=== PATIENT | female | born 1985 | race American Indian/Alaskan Native ===

== ENCOUNTER 2017-08-23 16:27 | Outpatient (CLI) | payer OTHER ==
[2017-08-23] MEDS ORDERED: LACTATED RINGERS 500 ML IV ONE (17:00)
[2017-08-23 19:07] VITALS: BP 88/53
[2017-08-23 19:12] LABS: Bilirubin,Urine NEG (Negative); Blood,Urine NEG (Negative); Color,Urine Straw (Yellow); Protein,Urine <15 mg/dL mg/dL (Negative); Urobilinogen,Urine < 2.0 mg/dL (<2.0); WBC,Urine < 1.0 /HPF (0.0-6.0)
[2017-08-23] MEDS ORDERED: TYLENOL PO ONE (19:23)
== END 2017-08-23 19:38 | disposition home or self-care (01) ==
LOC: TRG 16:27
PROVIDERS: ATTEND Obstetrics & Gynecology
DX: O47.03 False labor before 37 completed weeks of gestation, third trimester (principal); Z3A.35 35 weeks gestation of pregnancy
CPT/HCPCS: 59025; 81001; 96360; J7120

== ENCOUNTER 2017-09-14 05:21 | Inpatient (IN) | payer OTHER ==
[2017-09-14] MEDS ORDERED: ALUM-MAG HYDROX-SIMETH 200-200-20MG/5ML PO ONE (07:31)
[2017-09-14] MEDS ORDERED: MINERAL OIL PO PRN (10:56)
[2017-09-14] MEDS ORDERED: STADOL IV PRN (10:56)
[2017-09-14] MEDS ORDERED: ePHEDrine SULFATE IV PRN (10:56)
[2017-09-14] MEDS ORDERED: BRETHINE SUB-Q PRN (10:56)
[2017-09-14] MEDS ORDERED: BRETHINE IVP PRN (10:56)
[2017-09-14] MEDS ORDERED: PITOCin/NS 30 UNIT/500ML 30 UNITS/500 ML BAG IV SCH ×2 (11:00)
[2017-09-14] MEDS ORDERED: LACTATED RINGERS 1,000 ML IV SCH (11:00)
[2017-09-14] MEDS ORDERED: PITOCin/NS 20 UNIT/1000ML DRIP 20 UNITS/1,000 ML BAG IV SCH (11:00)
[2017-09-14] MEDS ORDERED: NARCAN 2 MG/2 ML ONE (11:04)
--- NOTE | 2017-09-14 11:04 | History and Physical Report ---
History of Present Illness Date of examination: 09/14/17 Date of admission: 09/14/17 05:22 Chief complaint: Contractions History of present illness: 31 y/o , now 38.4 days presents to labor and delivery in active labor. care at [facility] since 32 weeks. [facility] at 20 [facility]. Hx of +UDS for THC. GBS positive. Past History Past Medical History: no pertinent history Past Surgical History: cholecystectomy Family/Genetic History: none Social history: no significant social history - Obstetrical History Expected Date of Delivery: 09/24/17 Actual Gestation: 38 Week(s) 4 Day(s) : 6 Para: 5 Hx # Term Pregnancies: 5 Number of Living Children: 5 Medications and Allergies Allergies Allergy/AdvReac Type Severity Reaction Status Date / Time shellfish derived Allergy Hives Verified 02/13/14 19:26 Home Medications Medication Instructions Recorded Confirmed Last Taken Type Vits96/Iron Fum/Folic 1 tab PO QDAY 10/11/14 10/29/14 10/29/14 09:00 History [ Tablet] 1 tab Sertraline HCl 20 mg PO Q3D 10/11/14 10/29/14 09/27/14 10:00 History Acetaminophen/Codeine [Tylenol #3] 1 tab PO Q4HR PRN #30 tablet 10/31/14 Unknown Rx Ferrous Sulfate [Feosol 325 MG tab] 325 mg PO QDAY #60 tablet 10/31/14 Unknown Rx Ibuprofen [Motrin 600 MG tab] 600 mg PO Q6H PRN #30 tablet 10/31/14 Unknown Rx Sertraline [Zoloft] 100 mg PO QDAY #30 tablet 10/31/14 Unknown Rx Review of Systems All systems: negative - Vital Signs Vital signs: Vital Signs Temp 98.2 F 09/14/17 06:43 Temp Pulse Resp BP Pulse Ox 98.2 F 09/14/17 06:43 - Physical Exam Breasts: Positive: deferred, mass Lungs: Positive: Clear to auscultation Abdomen: Positive: soft Genitourinary (Female): Positive: normal external genitalia Vulva: both: normal Vagina: Positive: normal moisture Uterus: Positive: enlarged Anus/Rectum: Positive: normal perianal skin Extremities: Positive: normal Deep Tendon Reflex Grade: Normal +2 - Obstetrical FHR: category 1 Uterine Contraction Monitor Mode: External Cervical Dilatation: 5 (per nurse exam) Cervical Effacement Percentage: 70 station: -1 Uterine Contraction Pattern: Irregular Uterine Contraction Intensity: Strong/Firm Results All other labs normal. Assessment and Plan A: Active labor at 38 + weeks P; Expect
[2017-09-14] MEDS: SUBLIMAZE IV PRN ×2 (11:19→14:22)
[2017-09-14 11:43] LABS: Hematocrit 41.7 % (30.3-42.9); Mean Corpuscular HGB Conc 34 % (30-34); Mean Corpuscular Hemoglobin 29 pg (28-32); Mean Corpuscular Volume 87 fl (79-97); Platelet Count 171 K/mm3 (140-440); Red Blood Count 4.78 M/mm3 (3.65-5.03); Red Cell Distribution Width 14.6 % (13.2-15.2)
[2017-09-14] MEDS ORDERED: POLYCILLIN/NS 2 GM/100 ML 2 GM/100 ML BAG IV ONE (12:00)
[2017-09-14] MEDS ORDERED: XYLOCAINE 2% INFILTRATI ONE (12:00)
[2017-09-14] MEDS ORDERED: LANSINOH TP PRN (13:34)
[2017-09-14] MEDS ORDERED: TUCKS PAD TP PRN (13:34)
[2017-09-14] MEDS ORDERED: BENADRYL PO PRN (13:34)
[2017-09-14] MEDS ORDERED: TYLENOL PO PRN (13:34)
--- NOTE | 2017-09-14 13:39 | Procedure Note ---
OB Delivery Note - Delivery Date of Delivery: 09/14/17 Surgeon: HELIO WOODRUFF Estimated blood loss: 100cc - Vaginal Delivery presentation: vertex Delivery position: OA Intrapartum events: none Delivery induction: none Delivery monitor: external FHT, external uterine Route of delivery: Delivery placenta: spontaneous Episiotomy: none Delivery laceration: none Anesthesia: intravenous Delivery comments: of a viable male 7# 6oz on September 14 @ 1325 over intact perineum. 9/ 9. Placenta delivered 3VCI. FF @ U-2, lochia small. Mother and baby doing well. - A at 1 minute: 9 at 5 minutes: 9 Gender: Male (7# 6oz)
[2017-09-14] MEDS ORDERED: SODIUM CHLORIDE FLUSH SYRINGE 10 ML IV NR (14:00)
[2017-09-14] MEDS ORDERED: AMPICILLIN/NS 1 GM/50 ML 1 GM/50 ML BAG IV SCH (16:00)
[2017-09-14] MEDS: NORCO 5/325 PO PRN ×2 (16:15→23:11)
[2017-09-14] MEDS: MOTRIN PO SCH ×2 (18:18→20:10)
[2017-09-15 00:39] LABS: Hematocrit 34.2 % (30.3-42.9); Hemoglobin 11.2 gm/dl (10.1-14.3)
[2017-09-15] MEDS: MOTRIN PO SCH ×3 (02:00→20:28)
[2017-09-15] MEDS: NORCO 5/325 PO PRN ×2 (10:07→18:32)
--- NOTE | 2017-09-15 10:29 | Progress Note ---
Assessment and Plan A: PP Day #1 Stable P: Follow routine orders D/C home in the AM RTO in 6 Weeks Subjective - Subjective Date of service: 09/15/17 Patient reports: appetite normal, voiding normally, pain well controlled, ambulating normally Pierce: doing well Objective - Vital Signs Latest vital signs: Vital Signs Temp Pulse Resp BP BP Pulse Ox 09/15/17 07:35 97.9 F 69 18 86/47 98 09/15/17 00:35 98.2 F 65 20 101/59 98 09/14/17 21:06 98.2 F 69 20 109/66 99 09/14/17 16:15 16 09/14/17 15:50 97.8 F 61 16 90/58 09/14/17 12:51 18 09/14/17 12:21 18 Intake and Output 09/14/17 09/15/17 09/15/17 22:59 06:59 14:59 Intake Total 1000 480 Output Total 1000 Balance 0 480 Intake: IV 1000 Lactated Ringers 1,000 ml 1000 @ 125 mls/hr IV DIRECT ILIANA Rx#:[id number] Oral 480 Output: Urine 1000 Void 1000 Other: Total, Intake Amount 240 Total, Output Amount 1000 # Voids Void 1 1 - Exam Breasts: Present: normal Cardiovascular: Present: Regular rate Lungs: Present: Clear to auscultation, Normal air movement Abdomen: Present: normal appearance, soft, normal bowel sounds Uterus: Present: normal, firm, fundal height below umbilicus Extremities: Present: normal
--- NOTE | 2017-09-15 10:31 | Discharge Summary ---
Providers - Providers Date of Admission: 09/14/17 05:22 Date of discharge: 09/16/17 Attending physician: MICHELLE CHANDLER MD Primary care physician: MICHELLE CHANDLER MD Hospitalization Reason for admission: active labor Delivery: Episiotomy: none Laceration: none Other procedures: none complications: none Discharge diagnosis: IUP at term delivered [place] baby: male Condition at discharge: Good Disposition: DC-01 TO HOME OR SELFCARE Plan - Provider Discharge Summary Activity: routine, no sex for 6 weeks, no heavy lifting 4 weeks, no strenuous exercise Diet: routine Instructions: routine Additional instructions: [] Smoking cessation referral if applicable(refer to patient education folder for contact #) [] Refer to [facility]'s [facility] Booklet Call your doctor immediately for: * Fever > 100.5 * Heavy vaginal bleeding ( >1 pad per hour) * Severe persistent headache * Shortness of breath * Reddened, hot, painful area to leg or breast * Drainage or odor from incision. * Keep incision clean and dry at all times and follow doctor's instructions regarding bathing/showering - Follow up plan Follow up: MICHELLE CHANDLER MD [Primary Care Provider] - 6 Weeks
[2017-09-16] MEDS: NORCO 5/325 PO PRN ×3 (01:35→17:27)
[2017-09-16] MEDS: MOTRIN PO SCH ×3 (06:08→17:27)
[2017-09-16 10:11] VITALS: BP 95/51
== END 2017-09-16 19:30 | disposition home or self-care (01) | DRG 775 ==
LOC: TRG 05:21 → LD 05:22 → TRG 05:23 → OB 15:48
PROVIDERS: ADMIT Obstetrics & Gynecology; ATTEND Obstetrics & Gynecology
PROC: 10E0XZZ Delivery of Products of Conception, External Approach (ICD-10-PCS; principal; 2017-09-14)
DX: O99.824 Streptococcus B carrier state complicating childbirth (principal); Z3A.38 38 weeks gestation of pregnancy; Z37.0 Single live birth; Z91.013 Allergy to seafood; Z90.49 Acquired absence of other specified parts of digestive tract
CPT/HCPCS: 36415; 85014; 85018; 85027; 86592; 86850; 86900; 86901; 87806; 99211; A6250; G0463; J0290; J0595; J2310; J2590; J3010; J7120

== ENCOUNTER 2018-09-18 21:00 | Emergency (ER) | payer OTHER ==
[2018-09-18 21:38] VITALS: BP 118/66
--- NOTE | 2018-09-19 01:02 | Emergency Department Report ---
ED ENT HPI - General Chief complaint: Dizziness Stated complaint: DIZZY,SOMETHING IN BOTH EARS Time Seen by Provider: 09/19/18 00:11 Source: patient Mode of arrival: Ambulatory Limitations: No Limitations - History of Present Illness Initial comments: 32-year-old female past medical history of depression, however, currently not taking her Zoloft present. Emergency department complaining of sensation of bilateral ear throbbing and aches and occasional dizziness appears to worsen some head movement. Also been having some congestion and little throat irritation. No nausea, vomiting. No hemoptysis, hematemesis, hematochezia. No fever, chills, sweats, chest pain, palpitation. MD complaint: ear pain Location: R ear, L ear Severity: mild Quality: dull Consistency: constant Improves with: none Worsens with: none Associated Symptoms: denies: cough, pain with swallowing, sore throat, tinnitus, rhinorrhea - Related Data Home Medications Medication Instructions Recorded Confirmed Last Taken Vits96/Iron Fum/Folic 1 tab PO QDAY 10/11/14 09/16/17 1 Day Ago [ Tablet] ~09/15/17 1 Sertraline HCl 20 mg PO Q3D 10/11/14 09/16/17 10/12/14 Previous Rx's Medication Instructions Recorded Last Taken Type Acetaminophen/Codeine [Tylenol #3] 1 tab PO Q4HR PRN #30 tablet 10/31/14 11/01/14 Rx Ferrous Sulfate [Feosol 325 MG tab] 325 mg PO QDAY #60 tablet 10/31/14 09/13/17 Rx Ibuprofen [Motrin 600 MG tab] 600 mg PO Q6H PRN #30 tablet 10/31/14 11/01/14 Rx Sertraline [Zoloft] 100 mg PO QDAY #30 tablet 10/31/14 11/01/14 Rx Bacitracin Zinc Oint [Antibiotic 1 applicatio TP BID #1 tube 04/12/18 Unknown Rx Oint] Chlorhexidine Gluconate [Hibiclens] 236 ml TP BID #1 bottle 04/12/18 Unknown Rx Clindamycin [Clindamycin CAP] 300 mg PO Q8H 7 Days cap 04/12/18 Unknown Rx HYDROcodone/APAP 5-325 [[place] 1 each PO Q6HR PRN #15 tablet 04/12/18 Unknown Rx 5/325] Desloratadine/Pseudoephedrine 1 each PO BID #14 tbmp.12hr 09/19/18 Unknown Rx [Clarinex-D 12 Hour Tablet] predniSONE [Deltasone] 20 mg PO QDAY #5 tab 09/19/18 Unknown Rx Allergies Allergy/AdvReac Type Severity Reaction Status Date / Time shellfish derived Allergy Hives Verified 02/13/14 19:26 ED Dental HPI - General Chief complaint: Dizziness Stated complaint: DIZZY,SOMETHING IN BOTH EARS Time Seen by Provider: 09/19/18 00:11 Source: patient Mode of arrival: Ambulatory Limitations: No Limitations - Related Data Home Medications Medication Instructions Recorded Confirmed Last Taken Vits96/Iron Fum/Folic 1 tab PO QDAY 10/11/14 09/16/17 1 Day Ago [ Tablet] ~09/15/17 1 Sertraline HCl 20 mg PO Q3D 10/11/14 09/16/17 10/12/14 Previous Rx's Medication Instructions Recorded Last Taken Type Acetaminophen/Codeine [Tylenol #3] 1 tab PO Q4HR PRN #30 tablet 10/31/14 11/01/14 Rx Ferrous Sulfate [Feosol 325 MG tab] 325 mg PO QDAY #60 tablet 10/31/14 09/13/17 Rx Ibuprofen [Motrin 600 MG tab] 600 mg PO Q6H PRN #30 tablet 10/31/14 11/01/14 Rx Sertraline [Zoloft] 100 mg PO QDAY #30 tablet 10/31/14 11/01/14 Rx Bacitracin Zinc Oint [Antibiotic 1 applicatio TP BID #1 tube 04/12/18 Unknown Rx Oint] Chlorhexidine Gluconate [Hibiclens] 236 ml TP BID #1 bottle 04/12/18 Unknown Rx Clindamycin [Clindamycin CAP] 300 mg PO Q8H 7 Days cap 04/12/18 Unknown Rx HYDROcodone/APAP 5-325 [[place] 1 each PO Q6HR PRN #15 tablet 04/12/18 Unknown Rx 5/325] Desloratadine/Pseudoephedrine 1 each PO BID #14 tbmp.12hr 09/19/18 Unknown Rx [Clarinex-D 12 Hour Tablet] predniSONE [Deltasone] 20 mg PO QDAY #5 tab 09/19/18 Unknown Rx Allergies Allergy/AdvReac Type Severity Reaction Status Date / Time shellfish derived Allergy Hives Verified 02/13/14 19:26 ED Review of Systems ROS: Stated complaint: DIZZY,SOMETHING IN BOTH EARS Other details as noted in HPI Constitutional: denies: chills, fever Eyes: denies: eye pain, eye discharge, vision change ENT: ear pain, congestion. denies: throat pain Respiratory: denies: cough, shortness of breath, wheezing Cardiovascular: denies: chest pain, palpitations Endocrine: no symptoms reported Gastrointestinal: denies: abdominal pain, nausea, diarrhea Genitourinary: denies: urgency, dysuria, discharge Musculoskeletal: denies: back pain, joint swelling, arthralgia Skin: denies: rash, lesions Neurological: denies: headache, weakness, paresthesias Psychiatric: denies: anxiety, depression Hematological/Lymphatic: denies: easy bleeding, easy bruising ED Past Medical Hx - Past Medical History Previous Medical History?: Yes Hx Hypertension: No Hx Congestive Heart Failure: No Hx Diabetes: No Hx Deep Vein Thrombosis: No Hx Renal Disease: No Hx Sickle Cell Disease: Yes (Trait) Hx Seizures: No Hx Asthma: No Hx COPD: No Hx HIV: No Additional medical history: gallstones - Surgical History Past Surgical History?: Yes Hx Cholecystectomy: Yes (2006) - Social History Smoking Status: Never Smoker Substance Use Type: None - Medications Home Medications: Home Medications Medication Instructions Recorded Confirmed Last Taken Type Vits96/Iron Fum/Folic 1 tab PO QDAY 10/11/14 09/16/17 1 Day Ago History [ Tablet] ~09/15/17 1 Sertraline HCl 20 mg PO Q3D 10/11/14 09/16/17 10/12/14 History Acetaminophen/Codeine [Tylenol #3] 1 tab PO Q4HR PRN #30 tablet 10/31/14 09/16/17 11/01/14 Rx Ferrous Sulfate [Feosol 325 MG tab] 325 mg PO QDAY #60 tablet 10/31/14 09/16/17 09/13/17 Rx Ibuprofen [Motrin 600 MG tab] 600 mg PO Q6H PRN #30 tablet 10/31/14 09/16/17 11/01/14 Rx Sertraline [Zoloft] 100 mg PO QDAY #30 tablet 10/31/14 09/16/17 11/01/14 Rx Bacitracin Zinc Oint [Antibiotic 1 applicatio TP BID #1 tube 04/12/18 Unknown Rx Oint] Chlorhexidine Gluconate [Hibiclens] 236 ml TP BID #1 bottle 04/12/18 Unknown Rx Clindamycin [Clindamycin CAP] 300 mg PO Q8H 7 Days cap 04/12/18 Unknown Rx HYDROcodone/APAP 5-325 [[place] 1 each PO Q6HR PRN #15 tablet 04/12/18 Unknown Rx 5/325] Desloratadine/Pseudoephedrine 1 each PO BID #14 tbmp.12hr 09/19/18 Unknown Rx [Clarinex-D 12 Hour Tablet] predniSONE [Deltasone] 20 mg PO QDAY #5 tab 09/19/18 Unknown Rx ED Physical Exam - General Limitations: No Limitations General appearance: alert, in no apparent distress - Head Head exam: Present: atraumatic, normocephalic - Eye Eye exam: Present: normal appearance, PERRL, EOMI Pupils: Present: normal accommodation - ENT ENT exam: Present: normal exam, normal orophraynx, mucous membranes moist, other (some bulging to the TM bilaterally. No effusion noted. No perforation or injection. No canal. Bleeding was swelling) - Neck Neck exam: Present: normal inspection, full ROM. Absent: tenderness, lymphadenopathy - Respiratory Respiratory exam: Present: normal lung sounds bilaterally. Absent: respiratory distress, wheezes, rales, rhonchi, stridor, chest wall tenderness, decreased breath sounds - Cardiovascular Cardiovascular Exam: Present: regular rate, normal rhythm. Absent: bradycardia, systolic murmur, diastolic murmur, rubs, gallop - GI/Abdominal GI/Abdominal exam: Present: soft, normal bowel sounds. Absent: guarding, rebound - Extremities Exam Extremities exam: Present: normal inspection, full ROM, normal capillary refill. Absent: pedal edema, joint swelling, calf tenderness - Back Exam Back exam: Present: normal inspection. Absent: CVA tenderness (R), CVA tenderness (L) - Neurological Exam Neurological exam: Present: alert, oriented X3, CN II-XII intact, normal gait, motor sensory deficit. Absent: abnormal gait - Psychiatric Psychiatric exam: Present: normal affect, normal mood. Absent: flat affect, manic - Skin Skin exam: Present: warm, dry, intact, normal color. Absent: rash, diaphoretic, erythema ED Course Vital Signs 09/18/18 21:32 Temperature 98.2 F Pulse Rate 83 Respiratory 16 Rate Blood Pressure 118/66 O2 Sat by Pulse 100 Oximetry Critical care attestation.: If time is entered above; I have spent that time in minutes in the direct care of this critically ill patient, excluding procedure time. ED Disposition Clinical Impression: Otalgia Disposition: DC-01 TO HOME OR SELFCARE Is pt being admited?: No Does the pt Need Aspirin: No Condition: Stable Instructions: Earache (ED) Referrals: NIKOS JOE MD [Primary Care Provider] - 3-5 Days
== END 2018-09-19 01:44 | disposition home or self-care (01) ==
LOC: ED 21:00
DX: H92.03 Otalgia, bilateral (principal); R42 Dizziness and giddiness; D57.3 Sickle-cell trait; Z90.49 Acquired absence of other specified parts of digestive tract; Z91.018 Allergy to other foods

== ENCOUNTER 2019-04-23 02:16 | Emergency (ER) | payer OTHER ==
[2019-04-23 02:25] VITALS: BP 104/65
--- NOTE | 2019-04-23 02:43 | Emergency Department Report ---
ED Female HPI - General Chief complaint: Urogenital-Female Stated complaint: VAGINAL SWELLING Time Seen by Provider: 04/23/19 02:31 Source: patient Mode of arrival: Ambulatory Limitations: No Limitations - History of Present Illness Initial comments: Patient is a 33-year-old female who presents to the emergency room with complaints of blisters on the vagina that began 2 days ago. She states that the blisters are painful. she denies ever having this in the past. she denies any new sexual partner. She states that she has only been having intercourse with her . She denies any vaginal discharge or dysuria. She denies any history of STDs. She denies any past medical history or allergies medications. States her LNMP was 04/05/2019. - Related Data Home Medications Medication Instructions Recorded Confirmed Last Taken Vits96/Iron Fum/Folic 1 tab PO QDAY 10/11/14 09/16/17 1 Day Ago [ Tablet] ~09/15/17 1 Sertraline HCl 20 mg PO Q3D 10/11/14 09/16/17 10/12/14 Previous Rx's Medication Instructions Recorded Last Taken Type Acetaminophen/Codeine [Tylenol #3] 1 tab PO Q4HR PRN #30 tablet 10/31/14 11/01/14 Rx Ferrous Sulfate [Feosol 325 MG tab] 325 mg PO QDAY #60 tablet 10/31/14 09/13/17 Rx Ibuprofen [Motrin 600 MG tab] 600 mg PO Q6H PRN #30 tablet 10/31/14 11/01/14 Rx Sertraline [Zoloft] 100 mg PO QDAY #30 tablet 10/31/14 11/01/14 Rx Bacitracin Zinc Oint [Antibiotic 1 applicatio TP BID #1 tube 04/12/18 Unknown Rx Oint] Chlorhexidine Gluconate [Hibiclens] 236 ml TP BID #1 bottle 04/12/18 Unknown Rx Clindamycin [Clindamycin CAP] 300 mg PO Q8H 7 Days cap 04/12/18 Unknown Rx HYDROcodone/APAP 5-325 [Flatgap 1 each PO Q6HR PRN #15 tablet 04/12/18 Unknown Rx 5/325] Desloratadine/Pseudoephedrine 1 each PO BID #14 tbmp.12hr 09/19/18 Unknown Rx [Clarinex-D 12 Hour Tablet] predniSONE [Deltasone] 20 mg PO QDAY #5 tab 09/19/18 Unknown Rx Acyclovir [Zovirax Tab] 400 mg PO TID 7 Days #21 tablet 04/23/19 Unknown Rx Allergies Allergy/AdvReac Type Severity Reaction Status Date / Time shellfish derived Allergy Hives Verified 02/13/14 19:26 ED Review of Systems ROS: Stated complaint: VAGINAL SWELLING Other details as noted in HPI Comment: All other systems reviewed and negative ED Past Medical Hx - Past Medical History Previous Medical History?: No Hx Hypertension: No Hx Congestive Heart Failure: No Hx Diabetes: No Hx Deep Vein Thrombosis: No Hx Renal Disease: No Hx Sickle Cell Disease: Yes (Trait) Hx Seizures: No Hx Asthma: No Hx COPD: No Hx HIV: No Additional medical history: gallstones - Surgical History Past Surgical History?: Yes Hx Cholecystectomy: Yes (2006) - Social History Smoking Status: Former Smoker Substance Use Type: Alcohol, Marijuana - Medications Home Medications: Home Medications Medication Instructions Recorded Confirmed Last Taken Type Vits96/Iron Fum/Folic 1 tab PO QDAY 10/11/14 09/16/17 1 Day Ago History [ Tablet] ~09/15/17 1 Sertraline HCl 20 mg PO Q3D 10/11/14 09/16/17 10/12/14 History Acetaminophen/Codeine [Tylenol #3] 1 tab PO Q4HR PRN #30 tablet 10/31/14 09/16/17 11/01/14 Rx Ferrous Sulfate [Feosol 325 MG tab] 325 mg PO QDAY #60 tablet 10/31/14 09/16/17 09/13/17 Rx Ibuprofen [Motrin 600 MG tab] 600 mg PO Q6H PRN #30 tablet 10/31/14 09/16/17 11/01/14 Rx Sertraline [Zoloft] 100 mg PO QDAY #30 tablet 10/31/14 09/16/17 11/01/14 Rx Bacitracin Zinc Oint [Antibiotic 1 applicatio TP BID #1 tube 04/12/18 Unknown Rx Oint] Chlorhexidine Gluconate [Hibiclens] 236 ml TP BID #1 bottle 04/12/18 Unknown Rx Clindamycin [Clindamycin CAP] 300 mg PO Q8H 7 Days cap 04/12/18 Unknown Rx HYDROcodone/APAP 5-325 [[place]atgap 1 each PO Q6HR PRN #15 tablet 04/12/18 Unknown Rx 5/325] Desloratadine/Pseudoephedrine 1 each PO BID #14 tbmp.12hr 09/19/18 Unknown Rx [Clarinex-D 12 Hour Tablet] predniSONE [Deltasone] 20 mg PO QDAY #5 tab 09/19/18 Unknown Rx Acyclovir [Zovirax Tab] 400 mg PO TID 7 Days #21 tablet 04/23/19 Unknown Rx ED Physical Exam - General Limitations: No Limitations General appearance: alert, in no apparent distress - Head Head exam: Present: atraumatic, normocephalic - Eye Eye exam: Present: normal appearance - ENT ENT exam: Present: mucous membranes moist - External exam: Present: lesions (blisters and shallow ulcerations present to the bilateral labia majora), other (road worker: Aimee Eastman RN) - Neurological Exam Neurological exam: Present: alert, oriented X3 - Psychiatric Psychiatric exam: Present: normal affect, normal mood - Skin Skin exam: Present: warm, dry, intact ED Course Vital Signs 04/23/19 02:20 Temperature 98.9 F Pulse Rate 106 H Respiratory 14 Rate Blood Pressure 104/65 O2 Sat by Pulse 96 Oximetry ED Medical Decision Making - Medical Decision Making Patient is a 33-year-old female who presents to the emergency room with complaints of blisters on the vagina that began 2 days ago. She states that the blisters are painful. she denies ever having this in the past. she denies any new sexual partner. She states that she has only been having intercourse with her . She denies any vaginal discharge or dysuria. She denies any history of STDs. She denies any past medical history or allergies medications. States her LNMP was 04/05/2019. VSS. on exam: blisters and shallow ulcerations present to the bilateral labia majora, road worker: Aimee Eastman RN. Examination most likely consistent with herpes vaginalis. Patient given prescription for acyclovir. advised pt to please take medication as prescribed. Please follow-up with the health department or primary care doctor for full STD panel in the next 2-3 days. Please have your partner tested and treated as well. Do not engage in sexual intercourse for 10 days. Return to the emergency room for any new or worsening symptoms Critical care attestation.: If time is entered above; I have spent that time in minutes in the direct care o f this critically ill patient, excluding procedure time. 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 Please follow-up with the health department or primary care doctor for full STD panel in the next 2-3 days. Please have your partner tested and treated as well. Do not engage in sexual intercourse for 10 days. Return to the emergency room for any new or worsening symptoms. Prescriptions: Acyclovir [Zovirax Tab] 400 mg PO TID 7 Days #21 tablet Referrals: [facility] [Outside] - 2-3 Days [facility] [Outside] - 2-3 Days Time of Disposition: 03:15 Print Language: [id number]
== END 2019-04-23 03:56 | disposition home or self-care (01) ==
LOC: ED 02:16
DX: A60.04 Herpesviral vulvovaginitis (principal); F12.10 Cannabis abuse, uncomplicated; D57.3 Sickle-cell trait; Z90.49 Acquired absence of other specified parts of digestive tract; Z87.891 Personal history of nicotine dependence; Z91.013 Allergy to seafood; Z79.899 Other long term (current) drug therapy
CPT/HCPCS: 99282

== ENCOUNTER 2020-08-22 01:29 | Emergency (ER) | payer OTHER ==
[2020-08-22 01:35] VITALS: BP 110/73
[2020-08-22] MEDS ORDERED: diphenhydrAMINE 50 MG/ML VIAL IV ONE (01:35)
[2020-08-22] MEDS ORDERED: FAMOTIDINE 20 MG/2 ML INJ IV ONE (01:35)
[2020-08-22] MEDS ORDERED: methylPREDNISolone Sod Succinate 125 MG/2 ML INJ IV ONE (01:35)
--- NOTE | 2020-08-22 02:57 | Emergency Department Report ---
ED Allergic Reaction HPI - General Chief complaint: Allergic Reaction Stated complaint: ALLERGIC REACTION Source: patient Mode of arrival: Ambulatory Limitations: No Limitations - History of Present Illness Initial Comments: Patient is a 34-year-old -Pakistani female with no past medical history except chronic seafood allergies who presents to the ED with acute onset pers istent diffuse itchy erythematous maculopapular urticarial rashes with hoarseness and tightness in her throat for the last 2 hours after eating seafood at a restaurant about 8 hours prior to arrival in the ED. Patient states that she knows that she is allergic to seafood but still went to a restaurant and ate crab meat and other seafood food. Patient states that subsequently she started feeling lip tingling sensation and itching and took Benadryl at home prior to arrival in the ED. Patient states that about 1 hour prior to arrival in the ED, she started feeling tightness in her throat and hoarseness and decided come to the ED for evaluation. Patient denies nasal and sinus congestion, swollen lips, swollen tongue, dysphagia, cough, wheezing, chest pain, shortness of breath, facial swelling, nausea and vomiting or diarrhea and abdominal pain, fever and chills. MD Complaint: allergic reaction, hives, other (Sore throat) -: Sudden, hour(s) (2) Exposure: food (sea food) Symptoms: itching, hoarseness. denies: lip swelling, difficulty swallowing, difficulty breathing, orolingual swelling, syncopy, dizziness, nausea, vomiting, other, abdominal pain Severity: moderate Treatment Prior to Arrival: benadryl Previous Allergy History: other (sea food allergy) - Related Data Home Medications Medication Instructions Recorded Confirmed Last Taken Vits96/Iron Fum/Folic 1 tab PO QDAY 10/11/14 09/16/17 1 Day Ago [ Tablet] ~09/15/17 1 Sertraline HCl 20 mg PO Q3D 10/11/14 09/16/17 10/12/14 Previous Rx's Medication Instructions Recorded Last Taken Type Acetaminophen/Codeine [Tylenol #3] 1 tab PO Q4HR PRN #30 tablet 10/31/14 11/01/14 Rx Ferrous Sulfate [Feosol 325 MG tab] 325 mg PO QDAY #60 tablet 10/31/14 09/13/17 Rx Ibuprofen [Motrin 600 MG tab] 600 mg PO Q6H PRN #30 tablet 10/31/14 11/01/14 Rx Sertraline [Zoloft] 100 mg PO QDAY #30 tablet 10/31/14 11/01/14 Rx Bacitracin Zinc Oint [Antibiotic 1 applicatio TP BID #1 tube 04/12/18 Unknown Rx Oint] Chlorhexidine Gluconate [Hibiclens] 236 ml TP BID #1 bottle 04/12/18 Unknown Rx Clindamycin [Clindamycin CAP] 300 mg PO Q8H 7 Days cap 04/12/18 Unknown Rx HYDROcodone/APAP 5-325 [Francis 1 each PO Q6HR PRN #15 tablet 04/12/18 Unknown Rx 5/325] Desloratadine/Pseudoephedrine 1 each PO BID #14 tbmp.12hr 09/19/18 Unknown Rx [Clarinex-D 12 Hour Tablet] predniSONE [Deltasone] 20 mg PO QDAY #5 tab 09/19/18 Unknown Rx Acyclovir [Zovirax Tab] 400 mg PO TID 7 Days #21 tablet 04/23/19 Unknown Rx Famotidine [Pepcid] 20 mg PO BID #30 tablet 08/22/20 Unknown Rx Prednisone [predniSONE 10 mg 10 mg PO .TAPER #21 tab.ds.pk 08/22/20 Unknown Rx (6-Day Pack, 21 Tabs)] diphenhydrAMINE [Benadryl CAP] 50 mg PO Q8HR PRN #30 capsule 08/22/20 Unknown Rx Allergies Allergy/AdvReac Type Severity Reaction Status Date / Time shellfish derived Allergy Hives Verified 02/13/14 19:26 ED Review of Systems ROS: Stated complaint: ALLERGIC REACTION Other details as noted in HPI Constitutional: denies: chills, fever Eyes: denies: eye pain, eye discharge, vision change ENT: denies: ear pain, throat pain Respiratory: denies: cough, shortness of breath, wheezing Cardiovascular: denies: chest pain, palpitations Endocrine: no symptoms reported Gastrointestinal: denies: abdominal pain, nausea, diarrhea Genitourinary: denies: urgency, dysuria, discharge Musculoskeletal: denies: back pain, joint swelling, arthralgia Skin: rash (Mildly erythematous diffuse itchy macular rashes), change in color, pruritus. denies: lesions Neurological: denies: headache, weakness, paresthesias Psychiatric: denies: anxiety, depression Hematological/Lymphatic: denies: easy bleeding, easy bruising ED Past Medical Hx - Past Medical History Previous Medical History?: Yes Hx Hypertension: No Hx Congestive Heart Failure: No Hx Diabetes: No Hx Deep Vein Thrombosis: No Hx Renal Disease: No Hx Sickle Cell Disease: Yes (Trait) Hx Seizures: No Hx Asthma: No Hx COPD: No Hx HIV: No Additional medical history: gallstones - Surgical History Past Surgical History?: Yes Hx Cholecystectomy: Yes (2006) - Social History Smoking Status: Former Smoker Substance Use Type: Alcohol, Marijuana - Medications Home Medications: Home Medications Medication Instructions Recorded Confirmed Last Taken Type Vits96/Iron Fum/Folic 1 tab PO QDAY 10/11/14 09/16/17 1 Day Ago History [ Tablet] ~09/15/17 1 Sertraline HCl 20 mg PO Q3D 10/11/14 09/16/17 10/12/14 History Acetaminophen/Codeine [Tylenol #3] 1 tab PO Q4HR PRN #30 tablet 10/31/14 09/16/17 11/01/14 Rx Ferrous Sulfate [Feosol 325 MG tab] 325 mg PO QDAY #60 tablet 10/31/14 09/16/17 09/13/17 Rx Ibuprofen [Motrin 600 MG tab] 600 mg PO Q6H PRN #30 tablet 10/31/14 09/16/17 11/01/14 Rx Sertraline [Zoloft] 100 mg PO QDAY #30 tablet 10/31/14 09/16/17 11/01/14 Rx Bacitracin Zinc Oint [Antibiotic 1 applicatio TP BID #1 tube 04/12/18 Unknown Rx Oint] Chlorhexidine Gluconate [Hibiclens] 236 ml TP BID #1 bottle 04/12/18 Unknown Rx Clindamycin [Clindamycin CAP] 300 mg PO Q8H 7 Days cap 04/12/18 Unknown Rx HYDROcodone/APAP 5-325 [[place] 1 each PO Q6HR PRN #15 tablet 04/12/18 Unknown Rx 5/325] Desloratadine/Pseudoephedrine 1 each PO BID #14 tbmp.12hr 09/19/18 Unknown Rx [Clarinex-D 12 Hour Tablet] predniSONE [Deltasone] 20 mg PO QDAY #5 tab 09/19/18 Unknown Rx Acyclovir [Zovirax Tab] 400 mg PO TID 7 Days #21 tablet 04/23/19 Unknown Rx Famotidine [Pepcid] 20 mg PO BID #30 tablet 08/22/20 Unknown Rx Prednisone [predniSONE 10 mg 10 mg PO .TAPER #21 tab.ds.pk 08/22/20 Unknown Rx (6-Day Pack, 21 Tabs)] diphenhydrAMINE [Benadryl CAP] 50 mg PO Q8HR PRN #30 capsule 08/22/20 Unknown Rx ED Physical Exam - General Limitations: No Limitations General appearance: alert, in no apparent distress - Head Head exam: Present: atraumatic, normocephalic, normal inspection - Eye Eye exam: Present: normal appearance, PERRL, EOMI Pupils: Present: normal accommodation - ENT ENT exam: Present: normal exam, normal orophraynx, mucous membranes moist, TM's normal bilaterally, normal external ear exam - Neck Neck exam: Present: normal inspection, full ROM - Respiratory Respiratory exam: Present: normal lung sounds bilaterally. Absent: respiratory distress, wheezes, rales, rhonchi, chest wall tenderness, accessory muscle use, decreased breath sounds - Cardiovascular Cardiovascular Exam: Present: normal rhythm, tachycardia, normal heart sounds. Absent: systolic murmur, diastolic murmur, rubs, gallop - GI/Abdominal GI/Abdominal exam: Present: soft, normal bowel sounds. Absent: tenderness, guarding, rebound - Extremities Exam Extremities exam: Present: normal inspection, full ROM, normal capillary refill - Back Exam Back exam: Present: normal inspection, full ROM. Absent: tenderness, CVA tenderness (R), CVA tenderness (L), muscle spasm, paraspinal tenderness - Neurological Exam Neurological exam: Present: alert, oriented X3, CN II-XII intact, normal gait, reflexes normal - Psychiatric Psychiatric exam: Present: normal affect, normal mood - Skin Skin exam: Present: warm, dry, intact, normal color, rash (Mild erythematous maculopapular urticarial rashes diffusely), erythema, urticaria ED Course Vital Signs 08/22/20 01:33 Temperature 97.9 F Pulse Rate 112 H Respiratory 18 Rate Blood Pressure 110/73 O2 Sat by Pulse 97 Oximetry ED Medical Decision Making - Medical Decision Making This is a 34-year-old -Pakistani female with no past medical history except chronic seafood allergies who presents to the ED with acute onset persistent diffuse itchy erythematous maculopapular urticarial rashes with hoarseness and tightness in her throat for the last 2 hours after eating seafood at a restaurant about 8 hours prior to arrival in the ED. Patient states that she knows that she is allergic to seafood but still went to a restaurant and ate crab meat and other seafood food. Patient states that subsequently she started feeling lip tingling sensation and itching and took Benadryl at home prior to arrival in the ED. Patient states that about 1 hour prior to arrival in the ED, she started feeling tightness in her throat and hoarseness and decided come to the ED for evaluation. In the ED, patient is alert and oriented x3 and is not in any distress. Patient was treated in the ED for acute allergic reaction with Benadryl, Solu-Medrol and Pepcid, and patient was then observed in the ED for any worsening symptoms. On reevaluation, patient's tachycardia resolved, itchi ng also resolved and patient is hemodynamically stable. Patient was discharged home on medications and advised to follow-up with her primary care physician in 3 to 5 days for reevaluation. Patient was also advised to avoid seafood because of her chronic seafood allergies. Patient was however advised to return to the ED immediately if symptoms get worse. - Differential Diagnosis Acute allergic reaction; anaphylaxis; angioedema; urticaria; itching Critical care attestation.: If time is entered above; I have spent that time in minutes in the direct care of this critically ill patient, excluding procedure time. ED Disposition Clinical Impression: Acute allergic reaction, Allergy to seafood, Acute urticaria Disposition: DC-01 TO HOME OR SELFCARE Is pt being admited?: No Does the pt Need Aspirin: No Condition: Stable Instructions: Allergies, Adult, [id number], Food Allergy, [id number], Hives, Acqo-ux-Smty, Rash, Adult, [id number] Additional Instructions: Take medication with food, drink plenty of fluids and follow-up with your primary care physician in 3 to 5 days for reevaluation. Return to the ED immediately if symptoms get worse. Avoid seafood to prevent any future recurrent allergies. Prescriptions: diphenhydrAMINE [Benadryl CAP] 50 mg PO Q8HR PRN #30 capsule PRN Reason: Allergy Symptoms Famotidine [Pepcid] 20 mg PO BID #30 tablet Prednisone [predniSONE 10 mg (6-Day Pack, 21 Tabs)] 10 mg PO .TAPER #21 tab.ds.pk Referrals: QUINCY KATHLEEN [Other] - 3-5 Days Forms: Work/School Release Form(ED) Time of Disposition: 03:00 Print Language: GREENLANDIC
== END 2020-08-22 03:10 | disposition home or self-care (01) ==
LOC: ED 01:29
DX: T78.40XA Allergy, unspecified, initial encounter (principal); L50.9 Urticaria, unspecified; F12.10 Cannabis abuse, uncomplicated; Z90.49 Acquired absence of other specified parts of digestive tract; Z87.891 Personal history of nicotine dependence; Z79.1 Long term (current) use of non-steroidal anti-inflammatories (NSAID); Z79.899 Other long term (current) drug therapy; Z91.013 Allergy to seafood; X58.XXXA Exposure to other specified factors, initial encounter
CPT/HCPCS: 96374; 96375; 99282; J1200; J2930

== ENCOUNTER 2020-11-09 20:59 | Emergency (ER) | payer OTHER | END 2020-11-09 21:04 | disposition left against medical advice (07) | LOC: ED 20:59 | DX: R51.9 Headache, unspecified (principal); Z53.21 Procedure and treatment not carried out due to patient leaving prior to being seen by health care provider ==

== ENCOUNTER 2021-10-24 10:42 | Inpatient (IN) | payer OTHER ==
[2021-10-24] MEDS ORDERED: ePHEDrine SULFATE 50 MG/1 ML INJ IV PRN (13:30)
[2021-10-24] MEDS ORDERED: ONDANSETRON 4 MG/2 ML INJ IV PRN ×2 (13:30→20:45)
[2021-10-24] MEDS ORDERED: LOPERAMIDE 2 MG CAP PO PRN (13:30)
[2021-10-24] MEDS ORDERED: LIDOCAINE (2%) 20 MG/1 ML VIAL 20 ML MDV INFILTRATI ONE (13:30)
[2021-10-24] MEDS ORDERED: miSOPROStol 200 MCG TAB PR PRN (13:30)
[2021-10-24] MEDS ORDERED: NalbUPHINE 10 MG/1 ML INJ IV PRN (13:30)
[2021-10-24] MEDS ORDERED: TERBUTALINE 1 MG/1 ML INJ SUB-Q PRN (13:30)
[2021-10-24] MEDS ORDERED: OXYTOCIN 10 UNIT/1 ML INJ IM PRN (13:30)
[2021-10-24] MEDS ORDERED: PROMETHAZINE 25 MG RECT SUPP PR PRN ×2 (13:30→20:45)
[2021-10-24] MEDS ORDERED: METHYLERGONOVINE MALEATE 0.2 MG/ML VIAL IM PRN (13:30)
[2021-10-24] MEDS ORDERED: OXYTOCIN DRIP 30 UNITS/500 ML BAG IV SCH ×3 (14:00→21:00)
[2021-10-24] MEDS ORDERED: LACTATED RINGERS 1,000 ML IV SCH (14:00)
[2021-10-24 14:08] LABS: Hematocrit 34.9 % (30.3-42.9); Hemoglobin 11.8 gm/dl (10.1-14.3); Mean Corpuscular HGB Conc 34 % (30-34); Mean Corpuscular Volume 83 fl (79-97); Platelet Count 217 K/mm3 (140-440); Red Blood Count 4.23 M/mm3 (3.65-5.03); Red Cell Distribution Width 14.7 % (13.2-15.2)
[2021-10-24] MEDS ORDERED: CARBOPROST TROMETHAMINE 250 MCG/1 ML INJ IM PRN (14:30)
[2021-10-24] MEDS ORDERED: PENICILLIN G POTASSIUM 5 MIL.UNITS in SODIUM CHLORIDE 0.9% 50 ML IV ONE (15:00)
[2021-10-24] MEDS ORDERED: ACETAMINOPHEN 325 MG TAB PO PRN (15:00)
--- NOTE | 2021-10-24 15:04 | History and Physical Report ---
History of Present Illness Date of examination: 10/24/21 Date of admission: 10/24/21 13:51 Chief complaint: ctx History of present illness: at 40.5wks by LMP c/w U/S. care at [facility] with c/o ctx, denies LOF or VB or headache. Pt states her GBS is positive and records confirm same. labs with O positive, neg antibody screen, VDRL non-reactive, HepBsAg neg, HIV neg and rubella immune. Inheritest postive and maternity 21 negative. EFW on 09/1621 7lbs 11oz in the 82nd percentile. Past History Past Medical History: other (maternal tacchycardia, Excess wt gain in the ; Sickle cell trait; pt hospital records has pt on sertraline med, no depression history admitted) Past Surgical History: no surgical history Social history: no significant social history - Obstetrical History Expected Date of Delivery: 10/19/21 Actual Gestation: 40 Week(s) 5 Day(s) : 9 Spontaneous Abortions: 2 Number of Living Children: 6 Medications and Allergies Allergies Allergy/AdvReac Type Severity Reaction Status Date / Time shellfish derived Allergy Hives Verified 02/13/14 19:26 Home Medications Medication Instructions Recorded Confirmed Last Taken Type Vits96/Iron Fum/Folic 1 tab PO QDAY 10/11/14 09/16/17 1 Day Ago History [ Tablet] ~09/15/17 1 Sertraline HCl 20 mg PO Q3D 10/11/14 09/16/17 10/12/14 History Acetaminophen/Codeine [Tylenol #3] 1 tab PO Q4HR PRN #30 tablet 10/31/1408/2511/01/14 Rx Ferrous Sulfate [Feosol 325 MG tab] 325 mg PO QDAY #60 tablet 10/31/14 09/16/17 09/13/17 Rx Ibuprofen [Motrin 600 MG tab] 600 mg PO Q6H PRN #30 tablet 10/31/14 09/16/17 11/01/14 Rx Sertraline [Zoloft] 100 mg PO QDAY #30 tablet 10/31/14 09/16/17 11/01/14 Rx Bacitracin Zinc Oint [Antibiotic 1 applicatio TP BID #1 tube 04/12/18 Unknown Rx Oint] Chlorhexidine Gluconate [Hibiclens] 236 ml TP BID #1 bottle 04/12/18 Unknown Rx Clindamycin [Clindamycin CAP] 300 mg PO Q8H 7 Days cap 04/12/18 Unknown Rx HYDROcodone/APAP 5-325 [[place] 1 each PO Q6HR PRN #15 tablet 04/12/18 Unknown Rx 5/325] Desloratadine/Pseudoephedrine 1 each PO BID #14 tbmp.12hr 09/19/18 Unknown Rx [Clarinex-D 12 Hour Tablet] predniSONE [Deltasone] 20 mg PO QDAY #5 tab 09/19/18 Unknown Rx Acyclovir [Zovirax Tab] 400 mg PO TID 7 Days #21 tablet 04/23/19 Unknown Rx Famotidine [Pepcid] 20 mg PO BID #30 tablet 08/22/20 Unknown Rx Prednisone [predniSONE 10 mg 10 mg PO .TAPER #21 tab.ds.pk 08/22/20 Unknown Rx (6-Day Pack, 21 Tabs)] diphenhydrAMINE [Benadryl CAP] 50 mg PO Q8HR PRN #30 capsule 08/22/20 Unknown Rx Active Meds: Active Medications Acetaminophen (Acetaminophen 325 Mg Tab) 650 mg PO Q4H PRN PRN Reason: Pain, Mild (1-3) Carboprost Tromethamine (Carboprost Tromethamine 250 Mcg/1 Ml Inj) 250 mcg IM ONCE PRN PRN Reason: Uterine Bleeding Ephedrine Sulfate (Ephedrine Sulfate 50 Mg/1 Ml Inj) 10 mg IV Q2M PRN PRN Reason: Hypotension Fentanyl (Fentanyl 100 Mcg/2 Ml Inj) 100 mcg IV Q2H PRN PRN Reason: Pain,Severe (7-10) LABOR PAIN Oxytocin/Sodium Chloride (Pitocin/Ns 30 Unit/500ml) 30 units in 500 mls @ 2 mls/hr IV TITR ILIANA; Protocol Lactated Ringer's (Lactated Ringers) 1,000 mls @ 125 mls/hr IV DIRECT ILIANA Oxytocin/Sodium Chloride (Pitocin/Ns 30 Unit/500ml) 30 units in 500 mls @ 40 mls/hr IV TITR ILIANA; Protocol Penicillin G Potassium 5 mil. (units/ Sodium Chloride) 50 mls @ 100 mls/hr IV ONCE ONE; Protocol Stop: 06/01/22 15:29 Loperamide HCl (Loperamide 2 Mg Cap) 2 mg PO ONCE PRN PRN Reason: give with Hemabate Methylergonovine Maleate (Methylergonovine Maleate 0.2 Mg/Ml Vial) 0.2 mg IM O NCE PRN PRN Reason: Uterine Bleeding Mineral Oil (Mineral Oil 30 Ml Oral Liqd) 30 ml PO QHS PRN PRN Reason: Constipation Misoprostol (Misoprostol 200 Mcg Tab) 800 mcg [place] ONCE PRN PRN Reason: Uterine Bleeding Nalbuphine HCl (Nalbuphine 10 Mg/1 Ml Inj) 10 mg IV Q2H PRN PRN Reason: Pain, Moderate (4-6) Ondansetron HCl (Ondansetron 4 Mg/2 Ml Inj) 4 mg IV Q8H PRN PRN Reason: Nausea And Vomiting Oxytocin (Oxytocin 10 Unit/1 Ml Inj) 10 unit IM ONCE PRN PRN Reason: Uterine Bleeding Promethazine HCl (Promethazine 25 Mg Rect Supp) 25 mg [place] Q6H PRN PRN Reason: N/V if unable to take po Terbutaline Sulfate (Terbutaline 1 Mg/1 Ml Inj) 0.25 mg SUB-Q ONCE PRN PRN Reason: Hyperstimulation/Hypertonicity Review of Systems All systems: negative (contractions) - Vital Signs Vital signs: Vital Signs Pulse Pulse Ox 91 H 97 10/24/21 11:10 10/24/21 11:10 Temp Pulse Resp BP Pulse Ox 98.3 F 93 H 20 130/82 97 10/24/21 12:16 10/24/21 15:01 10/24/21 12:16 10/24/21 13:23 10/24/21 15:01 - Physical Exam Breasts: Positive: deferred Cardiovascular: Regular rate Lungs: Positive: Normal air movement Abdomen: Positive: soft Genitourinary (Female): Positive: normal external genitalia Vagina: Positive: normal moisture Uterus: Positive: enlarged (non-tender, gravid) Anus/Rectum: Positive: normal perianal skin - Obstetrical FHR: category 1 Uterine Contraction Monitor Mode: External Cervical Dilatation: 5 Cervical Effacement Percentage: 50 station: -2 Uterine Contraction Pattern: Irregular Uterine Contraction Intensity: Mild Results Result Diagrams: 10/24/21 Unknown All other labs normal. Assessment and Plan Grand multiparous in latent labor, GBS positive, Sickle cell trait, history maternal tacchycardia and stable now 1. Admit to labor and delivery and IV started because pt was upset with the triage nurse. 2. Will give PCN for GBS+ 3. Augment labor with pitocin 4. May have IV pain med as needed or epidural if desired All questions encouraged and answered. Emotional support.
[2021-10-24] MEDS: fentaNYL 100 MCG/2 ML INJ IV PRN ×2 (15:23→17:56)
--- NOTE | 2021-10-24 18:24 | Event Note ---
Date: 10/24/21 Evaluated patient at 1700. she is on 6mu of pitocin, Rn at . VE /-2 posterior/ mod soft. cat 1 tracing
[2021-10-24] MEDS ORDERED: PENICILLIN G POTASSIUM 3 MIL.UNITS in SODIUM CHLORIDE 0.9% 50 ML IV SCH (19:00)
--- NOTE | 2021-10-24 20:32 | Procedure Note ---
OB Delivery Note - Delivery Date of Delivery: 10/24/21 Surgeon: PILO DENG Estimated blood loss: 200cc - Vaginal Delivery presentation: vertex Delivery position: OP Intrapartum events: shoulder dystocia Delivery induction: none Delivery augmentation: rupture of membranes, pitocin Delivery monitor: external FHT, external uterine Route of delivery: Delivery placenta: spontaneous Delivery cord: nuchal cord (x1), 3 umbilical vessels Episiotomy: none Delivery laceration: none Anesthesia: epidural Delivery comments: AROM clear fluid. SAVD viable male infant, persistent O-P with shoulder dystocia relieved with suprapubic pressure, nuchal cord x1 reduced. Spontaneous delivery of placenta with 3v cord. Pt sustained no laceration, and cervix visualized and without lacerations. Bimanual massage with uterus firm. Mom and baby stable. EBL 200cc - A at 1 minute: 8 at 5 minutes: 9 (wt Clear amniotic fluid)
[2021-10-24] MEDS ORDERED: LANOLIN/ZINC/DIMETHICONE (LANSINOH) 7 GM TP PRN (20:45)
[2021-10-24] MEDS ORDERED: MAGNESIUM HYDROXIDE (MOM) ORAL LIQD UDC PO PRN (20:45)
[2021-10-24] MEDS ORDERED: diphenhydrAMINE 25 MG CAP PO PRN (20:45)
[2021-10-24] MEDS ORDERED: PROMETHAZINE 25 MG TAB PO PRN (20:45)
[2021-10-24] MEDS ORDERED: WITCH HAZEL/ GLYCERIN PAD TP PRN (20:45)
[2021-10-24] MEDS ORDERED: oxyCODONE /ACETAMINOPHEN 5-325MG TAB ONE (20:56)
[2021-10-24] MEDS ORDERED: MINERAL OIL 30 ML ORAL LIQD PO PRN (22:00)
[2021-10-24] MEDS: IBUPROFEN 800 MG TAB PO SCH (23:16)
[2021-10-25] MEDS: oxyCODONE /ACETAMINOPHEN 5-325MG TAB PO PRN ×2 (02:45→09:08)
[2021-10-25 08:07] LABS: Hematocrit 30.6 % (30.3-42.9); Hemoglobin 10.1 gm/dl (10.1-14.3)
[2021-10-25] MEDS: IBUPROFEN 800 MG TAB PO SCH ×2 (08:20→21:51)
[2021-10-25] MEDS: PRENATAL VIT27-FE FUMARATE-FOLIC ACID VIT TAB PO SCH (10:02)
[2021-10-25] MEDS: SENNOSIDES/DOCUSATE SODIUM 8.6/50 MG TAB PO SCH ×2 (10:02→21:51)
--- NOTE | 2021-10-25 14:59 | Progress Note ---
Assessment and Plan PPD#1 doing well 1. Routine care and discharge tomorrow if pt remains stable. Subjective Date of service: 10/25/21 Principal diagnosis: PPD#1 Interval history: Pt is very happy with her delivery process and has no complaints. Pain controlled with meds. Pt is breast feeding. Vag bleed scant and pt voiding without difficulty Objective - Constitutional Vitals: Vital Signs - 12hr 10/25/21 10/25/21 10/25/21 07:51 08:15 09:08 Temperature 97.6 F Pulse Rate 73 Respiratory 18 20 Rate Blood Pressure 97/56 O2 Sat by Pulse 98 Oximetry O2 Sat by Pulse 99 Oximetry [ Bilateral Throughout] 10/25/21 12:07 Temperature 97.6 F Pulse Rate 75 Respiratory 18 Rate Blood Pressure 97/50 O2 Sat by Pulse 100 Oximetry O2 Sat by Pulse Oximetry [ Bilateral Throughout] General appearance: Present: no acute distress - Neck Neck: normal ROM - Respiratory Respiratory effort: normal - Breasts Breasts: deferred - Cardiovascular Rhythm: regular Extremities: No edema - Gastrointestinal General gastrointestinal: Present: soft, non-tender - Genitourinary Female genitourinary: other (Fundus firm, 1cm below umbilicus) - Neurologic Neurologic: moves all extremities - Psychiatric Psychiatric: cooperative - Labs CBC & Chem 7: 10/25/21 07:35 Medications & Allergies - Medications Allergies/Adverse Reactions: Allergies shellfish derived Allergy (Verified 02/13/14 19:26) Hives Home Medications: Home Medications Medication Instructions Recorded Confirmed Last Taken Type Vits96/Iron Fum/Folic 1 tab PO QDAY 10/11/14 09/16/17 1 Day Ago History [ Tablet] ~09/15/17 1 Sertraline HCl 20 mg PO Q3D 10/11/14 09/16/17 10/12/14 History Acetaminophen/Codeine [Tylenol #3] 1 tab PO Q4HR PRN #30 tablet 10/31/14 09/16/17 11/01/14 Rx Ferrous Sulfate [Feosol 325 MG tab] 325 mg PO QDAY #60 tablet 10/31/14 09/16/17 09/13/17 Rx Ibuprofen [Motrin 600 MG tab] 600 mg PO Q6H PRN #30 tablet 10/31/14 09/16/17 11/01/14 Rx Sertraline [Zoloft] 100 mg PO QDAY #30 tablet 10/31/14 09/16/17 11/01/14 Rx Bacitracin Zinc Oint [Antibiotic 1 applicatio TP BID #1 tube 04/12/18 Unknown Rx Oint] Chlorhexidine Gluconate [Hibiclens] 236 ml TP BID #1 bottle 04/12/18 Unknown Rx Clindamycin [Clindamycin CAP] 300 mg PO Q8H 7 Days cap 04/12/18 Unknown Rx HYDROcodone/APAP 5-325 [[place] 1 each PO Q6HR PRN #15 tablet 04/12/18 Unknown Rx 5/325] Desloratadine/Pseudoephedrine 1 each PO BID #14 tbmp.12hr 09/19/18 Unknown Rx [Clarinex-D 12 Hour Tablet] predniSONE [Deltasone] 20 mg PO QDAY #5 tab 09/19/18 Unknown Rx Acyclovir [Zovirax Tab] 400 mg PO TID 7 Days #21 tablet 04/23/19 Unknown Rx Famotidine [Pepcid] 20 mg PO BID #30 tablet 08/22/20 Unknown Rx Prednisone [predniSONE 10 mg 10 mg PO .TAPER #21 tab.ds.pk 08/22/20 Unknown Rx (6-Day Pack, 21 Tabs)] diphenhydrAMINE [Benadryl CAP] 50 mg PO Q8HR PRN #30 capsule 08/22/20 Unknown Rx Active Medications: Generic Name Dose Route Start Last Admin Trade Name Freq PRN Reason Stop Dose Admin Acetaminophen 650 mg 10/24/21 15:00 Acetaminophen 325 Mg Tab PO Q4H PRN Pain, Mild (1-3) Bisacodyl 10 mg 10/24/21 20:45 Bisacodyl 10 Mg Rect Supp [place] BID PRN Constipation Carboprost Tromethamine 250 mcg 10/24/21 14:30 Carboprost Tromethamine 250 Mcg/1 Ml Inj IM ONCE PRN Uterine Bleeding Diphenhydramine HCl 25 mg 10/24/21 20:45 Diphenhydramine 25 Mg Cap PO Q6H PRN Itching Oxytocin/Sodium Chloride 30 units in 500 mls @ 2 mls/hr 10/24/21 14:00 10/24/21 18:02 Pitocin/Ns 30 Unit/500ml IV 8 mls/hr TITR ILIANA Titration Protocol Lactated Ringer's 1,000 mls @ 125 mls/hr 10/24/21 14:00 10/24/21 15:12 Lactated Ringers IV 125 mls/hr DIRECT ILIANA Administration Oxytocin/Sodium Chloride 30 units in 500 mls @ 40 mls/hr 10/24/21 14:00 Pitocin/Ns 30 Unit/500ml IV TITR ILIANA Protocol Oxytocin/Sodium Chloride 30 units in 500 mls @ 40 mls/hr 10/24/21 21:00 Pitocin/Ns 30 Unit/500ml IV TITR ILIANA Protocol Ibuprofen 800 mg 10/24/21 21:00 10/25/21 08:20 Ibuprofen 800 Mg Tab PO 800 mg Q6H ILIANA Administration Loperamide HCl 2 mg 10/24/21 13:30 Loperamide 2 Mg Cap PO ONCE PRN give with Hemabate Magnesium Hydroxide 30 ml 10/24/21 20:45 Magnesium Hydroxide (Mom) Oral Liqd Udc PO HS PRN Constipation Methylergonovine Maleate 0.2 mg 10/24/21 13:30 Methylergonovine Maleate 0.2 Mg/Ml Vial IM ONCE PRN Uterine Bleeding Mineral Oil 30 ml 10/24/21 22:00 Mineral Oil 30 Ml Oral Liqd PO QHS PRN Constipation Misoprostol 800 mcg 10/24/21 13:30 Misoprostol 200 Mcg Tab [place] ONCE PRN Uterine Bleeding Multi-Ingredient Ointment 1 applic 10/24/21 20:45 Lanolin/Zinc/Dimethicone (Lansinoh) 7 Gm TP PRN PRN Sore Nipples Multivitamins/Iron/Calcium 1 each 10/25/21 10:00 10/25/21 10:02 [id number] Fumarate-Folic Acid Vit Tab PO 1 each QDAY ILIANA Administration Ondansetron HCl 4 mg 10/24/21 13:30 Ondansetron 4 Mg/2 Ml Inj IV Q8H PRN Nausea And Vomiting Ondansetron HCl 4 mg 10/24/21 20:45 Ondansetron 4 Mg/2 Ml Inj IV Q8H PRN Nausea And Vomiting Oxycodone/Acetaminophen 2 tab 10/24/21 20:45 10/25/21 09:08 Oxycodone /Acetaminophen 5-325mg Tab PO 2 tab Q6H PRN Administration Pain, Moderate (4-6) Oxytocin 10 unit 10/24/21 13:30 Oxytocin 10 Unit/1 Ml Inj IM ONCE PRN Uterine Bleeding Promethazine HCl 25 mg 10/24/21 13:30 Promethazine 25 Mg Rect Supp [place] Q6H PRN N/V if unable to take po Promethazine HCl 25 mg 10/24/21 20:45 Promethazine 25 Mg Rect Supp [place] Q6H PRN Nausea And Vomiting Promethazine HCl 25 mg 10/24/21 20:45 Promethazine 25 Mg Tab PO Q6H PRN Nausea And Vomiting Senna/Docusate Sodium 2 tab 10/24/21 22:00 10/25/21 10:02 Sennosides/Docusate Sodium 8.6/50 Mg Tab PO 2 tab Q12H ILIANA Administration Witch Marjorie/Glycerin 1 each 10/24/21 20:45 Witch Marjorie/ Glycerin Pad TP PRN PRN Hemorrhoid/cleansing/soothing
[2021-10-26] MEDS: oxyCODONE /ACETAMINOPHEN 5-325MG TAB PO PRN (06:44)
--- NOTE | 2021-10-26 09:07 | Progress Note ---
Assessment and Plan A: PPD # 2 - stable P: Discharge home today, Discharge instructions given Subjective - Subjective Date of service: 10/26/21 Principal diagnosis: PPD#2 Patient reports: appetite normal : doing well Objective - Vital Signs Latest vital signs: Vital Signs Temp Pulse Resp BP Pulse Ox Pulse Ox 10/26/21 06:44 16 10/26/21 00:16 98.2 F 83 20 110/67 97 10/25/21 23:50 98 10/25/21 15:49 97.7 F 75 18 93/59 100 10/25/21 12:07 97.6 F 75 18 97/50 100 10/25/21 09:08 20 Intake and Output 10/25/21 10/26/21 10/26/21 22:59 06:59 14:59 Intake Total 600 480 Balance 600 480 Intake: Oral 240 480 Intake, Free Water 360 Other: Total, Intake Amount 240 240 # Voids Void 1 1 - Exam Breasts: Present: deferred Cardiovascular: Present: Regular rate Lungs: Present: Clear to auscultation Abdomen: Present: soft Vulva: both: normal Uterus: Present: fundal height below umbilicus Extremities: Present: normal Deep Tendon Reflex Grade: Normal +2
--- NOTE | 2021-10-26 09:08 | Discharge Summary ---
Providers - Providers Date of Admission: 10/24/21 13:51 Date of discharge: 10/26/21 Attending physician: PILO DENG Primary care physician: PILO DENG Hospitalization Reason for admission: active labor Delivery: Episiotomy: none complications: none [place] baby: male Condition at discharge: Good Disposition: 01 HOME / SELF CARE / HOMELESS Plan - Provider Discharge Summary Activity: routine, no sex for 6 weeks Diet: routine Instructions: routine Additional instructions: [] Smoking cessation referral if applicable(refer to patient education folder for contact #) [] Refer to [facility]'s [facility] Booklet Call your doctor immediately for: * Fever > 100.5 * Heavy vaginal bleeding ( >1 pad per hour) * Severe persistent headache * Shortness of breath * Reddened, hot, painful area to leg or breast * Drainage or odor from incision. * Keep incision clean and dry at all times and follow doctor's instructions regarding bathing/showering - Follow up plan Follow up: PILO DENG MD [Primary Care Provider] - 6 Weeks
[2021-10-26] MEDS: IBUPROFEN 800 MG TAB PO SCH (10:30)
[2021-10-26] MEDS: PRENATAL VIT27-FE FUMARATE-FOLIC ACID VIT TAB PO SCH (10:31)
[2021-10-26] MEDS: SENNOSIDES/DOCUSATE SODIUM 8.6/50 MG TAB PO SCH (10:34)
[2021-10-26 15:42] VITALS: BP 101/60
== END 2021-10-26 15:48 | disposition home or self-care (01) | DRG 775 ==
LOC: TRG 10:42 → APU 10:43 → LD 13:18 → TRG 13:51 → OB 22:21
PROVIDERS: ADMIT Obstetrics & Gynecology; ATTEND Obstetrics & Gynecology
PROC: 10E0XZZ Delivery of Products of Conception, External Approach (ICD-10-PCS; principal; 2021-10-24)
PROC: 10907ZC Drainage of Amniotic Fluid, Therapeutic from Products of Conception, Via Natural or Artificial Opening (ICD-10-PCS; 2021-10-24)
PROC: 3E0R3BZ Introduction of Anesthetic Agent into Spinal Canal, Percutaneous Approach (ICD-10-PCS; 2021-10-24)
PROC: 00HU33Z Insertion of Infusion Device into Spinal Canal, Percutaneous Approach (ICD-10-PCS; 2021-10-24)
DX: O99.824 Streptococcus B carrier state complicating childbirth (principal); Z20.822 Contact with and (suspected) exposure to COVID-19; O66.0 Obstructed labor due to shoulder dystocia; O69.81X0 Labor and delivery complicated by cord around neck, without compression, not applicable or unspecified; Z3A.40 40 weeks gestation of pregnancy; Z37.0 Single live birth; Z91.013 Allergy to seafood
CPT/HCPCS: 36415; 85014; 85018; 85027; 86592; 86850; 86900; 86901; 99211; G0378; G0463; J2540; J2590; J3010; J7120; U0003